=== PATIENT | female | born 1995 | race Caucasian/White ===

== ENCOUNTER 2017-01-11 12:09 | Emergency (ER) | payer OTHER ==
[~2017-01-11] VITALS: Ht 162.6 cm; Wt 57.0 kg
[2017-01-11 12:21] VITALS: TEMP 37; Ht 162.6 cm; Wt 57.0 kg
[2017-01-11] MEDS ORDERED: SODIUM CHLORIDE 0.9% 1000ML 1,000 ML IV STA (13:01)
[2017-01-11] MEDS ORDERED: PROCHLORPERAZINE 5 MG/ML 2 ML VIAL IV STA (13:01)
[2017-01-11] MEDS ORDERED: KETOROLAC TROMETHAMINE 30 MG/ML VIAL IV STA (13:01)
[2017-01-11] MEDS ORDERED: DiphenhydrAMINE HCL 50 MG/ML VIAL IV STA (13:01)
[2017-01-11] MEDS ORDERED: DEXAMETHASONE SOD INJ 10 MG/ML VIAL IV ONE (13:15)
[2017-01-11] MEDS ORDERED: BCPILLS PO (14:09)
--- NOTE | 2017-01-11 14:12 | EMERGENCY ROOM VISIT NOTE ---
ED Visit Note First contact with patient: 12:47 CHIEF COMPLAINT: Migraine headache 3 days HISTORY OF PRESENT ILLNESS: Patient is a 21-year-old white female with past medical history significant for migraines who presents to the emergency department for evaluation of a migraine 3 days. She reports the gradual onset of her typical occipital/frontal headache with associated nausea, or and photophobia earlier this week. She tried using her abortive medications including Zomig and indomethacin multiple times, without relief. She also tried using ibuprofen. She states that this feels typical of her usual migraine phenomenon, that she is typically able to get it to go away with her medications. She denies any recent cold, upper respiratory symptom, fever or chills. No posterior neck pain or stiffness. She denies any falls or trauma. She denies any difficulty with balance, speech or coordination. No weakness or numbness of the extremities. Prior workups for her migraines included MRIs and laboratory studies. She states that the last time she needed to be treated in the emergency department for a migraine was about 2 years ago. REVIEW OF SYSTEMS: Review of systems as per HPI. All other systems reviewed were negative. 10 systems reviewed. PMH: Electronic medical records are reviewed and summarized as above/below. See Problem List. SOCIAL HISTORY: Patient is a [employer] student from the [place] area who lives locally in an apartment with roommates. She does not smoke, denies alcohol use. PHYSICAL EXAM: Vital Signs: Reviewed Nurse's notes. General Appearance: Patient is a pleasant, well-appearing 21-year-old white female who is awake and alert and seated in a darkened room in no acute distress. Eyes: Pupils equal round reactive to light extraocular muscles are intact, mild photophobia ENT: Oropharynx is clear, mucous membranes are moist, tympanic membranes are clear bilaterally, no sinus or dental tenderness Neck: Supple, no cervical lymphadenopathy, no meningismus Heart: Regular rate and rhythm, S1 and S2 Lungs: Clear to auscultation bilaterally, no wheezes Rales or rhonchi, no increased work of breathing Abdomen: Soft nontender nondistended. Normal active bowel sounds. No rebound. No guarding. Back: No midline tenderness to palpation. : No CVA tenderness to palpation. Skin: Warm, no diaphoresis, no rashes. Extremities: No cyanosis, clubbing, or edema Neurologic: Patient is awake alert, and oriented x 3. Cranial nerves 2-12 are grossly intact. Motor 5 out of 5 strength bilateral upper extremities and lower extremities. No gross sensory deficits. Reflexes are 2+ throughout. Negative Romberg and pronator drift. Finger to nose testing is normal. Normal rapid alternating movements. EMERGENCY DEPARTMENT COURSE: The patient was seen and evaluated as above. She does not have any old records at our facility for review. She reports that she has responded well to IV regimens including steroids and Benadryl in the past. IV lock was initiated. The patient was given a liter bolus of normal saline solution. She was medicated with Toradol 30 mg, Decadron 10 mg, Benadryl 25 mg and Compazine 10 mg IV. She was observed in the emergency department. On reassessment, she reported that she felt improved and rated her pain a 0/10. She felt well enough to be discharged home. Her exam is not consistent with meningitis or encephalitis. This is not the worst headache of her life, nor does she provided a history of trauma to indicate advanced neuro imaging. The patient will be discharged home to the care of a friend. Differential includes: acute intracranial bleed, meningitis, encephalitis, mass or mass effect, sinusitis, infection, migraine, tumor, headache, temporal arteritis and carbon monoxide exposure. Patient was reviewed in the [facility] Prescription Drug Monitoring Program, and there were no red flags noted. Problem List Medical Problems: (1) Migraine headache Status: Chronic Surgical Problems: (1) H/O wisdom tooth extraction Status: Resolved Current/Historical Medications Scheduled Control Pills ( Control Pills), 1 TAB PO DAILY Allergies Coded Allergies: Clarithromycin (Verified Allergy, Mild, ., 01/11/17) Vital Signs Date Time Temp Pulse Resp B/P Pulse Ox O2 Delivery O2 Flow Rate FiO2 01/11/17 14:31 80 16 113/66 100 01/11/17 14:09 80 16 113/66 100 Room Air 01/11/17 13:58 88 18 115/58 99 Room Air 01/11/17 12:21 37.0 105 16 148/98 98 Room Air Medications Administered Medications (Trade) Dose Ordered Sig/Dusty Route Start Time Stop Time Status Last Admin Dose Admin Ketorolac Tromethamine (Toradol Inj) 30 mg NOW STAT IV 01/11/17 13:01 01/11/17 13:03 DC 01/11/17 13:21 30 MG Dexamethasone Sodium Phosphate (Decadron Inj) 10 mg NOW ONCE IV 01/11/17 13:15 01/11/17 13:16 DC 01/11/17 13:22 10 MG Prochlorperazine Edisylate (Compazine Inj) 10 mg NOW STAT IV 01/11/17 13:01 01/11/17 13:03 DC 01/11/17 13:23 10 MG Diphenhydramine HCl 25 mg 25 mg NOW STAT IV 01/11/17 13:01 01/11/17 13:03 DC 01/11/17 13:20 25 MG Sodium Chloride (Nss 1000ml) 1,000 ml @ 999 mls/hr Q1H1M STAT IV 01/11/17 13:01 01/11/17 14:01 DC 01/11/17 13:20 999 MLS/HR Departure Information Impression Primary Impression: Headache Patient Instructions My [facility] Additional Instructions DO NOT drive, drink alcohol, operate machinery, or perform dangerous activities today. You were given medications in the ER that can affect your ability to safely function or operate a vehicle. Rest today in a quiet, peaceful, dark environment and get a full 8-10 hrs of sleep tonight. Avoid loud noises, smoke/smoking, alcohol, bright lights, stress, or physical exertion today to minimize the chance the headache may return. Continue current medications. Ibuprofen(Motrin, Advil) may be used for fever or pain. Use 600mg every six hours as needed. Take with food. Avoid using more than 2400mg in a 24 hour period. Do not use 2400mg per day for more than three consecutive days without physician direction. Prolonged inappropriate use can lead to stomach upset or ulcers. (AND/OR) Acetaminophen(Tylenol) may be used for fever or pain. Use 1000mg every six hours as needed. Avoid using more than 3000mg in a 24 hour period. Return to the ER for passing out, worsening headache, vision problems, neck stiffness/pain, fevers, vomiting, worsening of your condition, or as needed. Follow up with your primary physician in 2-3 days for a recheck of your current condition.
[2017-01-11 14:31] VITALS: BP 113/66; PULSE 80; O2SAT 100
== END 2017-01-11 14:31 | disposition home or self-care (01) ==
LOC: C.EDB 12:11 → C.EDC 14:31
DX: G43.909 Migraine, unspecified, not intractable, without status migrainosus (principal)